=== PATIENT | male | born 1945 | race Hispanic/Latino ===

== ENCOUNTER 2021-10-09 12:19 | Emergency (ER) | payer OTHER ==
[2021-10-09] MEDS ORDERED: LIDOCAINE 1% MPF 5 ML VIAL ONE (14:57)
[2021-10-09] MEDS ORDERED: LIDOCAINE 1% 20 ML MDV ONE (15:11)
--- NOTE | 2021-10-09 15:47 | ER ---
Nurse's Notes [facility] Name: Buzz Richardson Age: 75 yrs Sex: Male : 1945 Arrival Date: 10/09/2021 Time: 12:26 Bed 16 Private MD: Diagnosis: Laceration without foreign body of unspecified part of head Presentation: 10/09 12:39 Chief complaint: Patient states: Pt was waling down the ramp from the trailer and lost vg1 balance and fell and hit head on concrete, incident occurred about two hours ago. Denies LOC. Stated takes 81 mg of Aspirin/ day. Pt appears to have a laceration near Right eyebrow. Took 400 mg of ibuprofen about an hour ago. Coronavirus screen: Vaccine status: Patient reports receiving the 2nd dose of the covid vaccine. Client denies travel out of the [place] in the last 14 days. Ebola Screen: Patient denies exposure to infectious person. Patient denies travel to an Ebola-affected area in the 21 days before illness onset. Initial Sepsis Screen: Does the patient meet any 2 criteria? No. Patient's initial sepsis screen is negative. Does the patient have a suspected source of infection? No. Patient's initial sepsis screen is negative. Risk Assessment: Do you want to hurt yourself or someone else? Patient reports no desire to harm self or others. Onset of symptoms was October 09, 2021. 12:39 Method Of Arrival: Ambulatory vg1 12:39 Acuity: KYLER 3 vg1 Triage Assessment: 12:44 General: Appears comfortable, Behavior is calm, cooperative. Pain: Complains of pain in vg1 forehead Pain currently is 0 out of 10 on a pain scale. 12:44 Neuro: Level of Consciousness is awake, alert, obeys commands, Oriented to person, vg1 place, time, situation. Historical: - Allergies: 12:44 No Known Allergies; vg1 - Home Meds: 12:44 metformin Oral [Active]; Lisinopril Oral [Active]; tamsulosin oral [Active]; Aspirin vg1 Oral [Active]; Glipizide Oral [Active]; citalopram oral [Active]; insulin [Active]; - PMHx: 12:44 Diabetes mellitus; PTSD; Hypertensive disorder; vg1 - Immunization history:: Client reports receiving the 2nd dose of the Covid vaccine. - Social history:: Smoking status: Patient denies any tobacco usage or history of. Screenin:33 Abuse screen: Denies threats or abuse. Denies injuries from another. Nutritional hb screening: No deficits noted. Tuberculosis screening: No symptoms or risk factors identified. Fall Risk None identified. Assessment: 15:33 General: Appears in no apparent distress. Behavior is calm, cooperative. Pain: Denies hb pain. Neuro: Level of Consciousness is awake, alert, obeys commands, Oriented to person, place, time, situation. Cardiovascular: Patient's skin is warm and dry. Respiratory: Respiratory effort is even, unlabored, Respiratory pattern is regular, symmetrical. 15:34 Reassessment: Dr. Peace at bedside for lac repair. hb Vital Signs: 12:39 BP 140 / 54; Pulse 68; Resp 18; Temp 98.1; Pulse Ox 98% on R/A; Weight 138.35 kg; vg1 Height 5 ft. 11 in. (180.34 cm); Pain 0/10; 12:39 Body Mass Index 42.54 (138.35 kg, 180.34 cm) vg1 ED Course: 12:26 Patient arrived in ED. mr 12:44 Triage completed. vg1 12:44 Arm band placed on. [facility] 12:50 [facility] jl9 14:43 Ana Beck, RN is Primary Nurse. hb 15:33 Patient has correct armband on for positive identification. hb 15:33 No provider procedures requiring assistance completed. Patient did not have IV access hb during this emergency room visit. Administered Medications: 15:10 Drug: Lidocaine (1 %) 5 ml {Note: Administered by Dr. Peace.} Volume: 20 ml; Route: hb Infiltration; Medication: 15:33 VIS not applicable for this client. hb Outcome: 15:46 Discharge ordered by MD. santamaria 15:56 Discharged to home ambulatory, with significant other. hb 15:56 Condition: stable 15:56 Discharge instructions given to patient, significant other, Instructed on discharge instructions, follow up and referral plans. medication usage, Demonstrated understanding of instructions, follow-up care, medications. 15:57 Patient left the ED. hb Signatures: Carrasquillo Kary mr Ana Beck RN RN Ileana Post RN RN [facility] Pedro Peace jl9
--- NOTE | 2021-10-09 15:47 | EDPHYS ---
Physician Documentation [facility] Name: Buzz Richardson Age: 75 yrs Sex: Male : 1945 Arrival Date: 10/09/2021 Time: 12:26 Bed 16 Private MD: ED Physician HPI: 10/09 14:36 This 75 yrs old Male presents to ER via Ambulatory with complaints of Fall jl9 Injury, Laceration To Head. 14:36 Details of fall: The patient fell from an upright position, while walking. Onset: The jl9 symptoms/episode began/occurred just prior to arrival. Associated injuries: The patient sustained laceration, 4 cm(s). Patient reports tripping and falling. Patient denies LOC. . Historical: - Allergies: 12:44 No Known Allergies; vg1 - Home Meds: 12:44 metformin Oral [Active]; Lisinopril Oral [Active]; tamsulosin oral [Active]; Aspirin vg1 Oral [Active]; Glipizide Oral [Active]; citalopram oral [Active]; insulin [Active]; - PMHx: 12:44 Diabetes mellitus; PTSD; Hypertensive disorder; vg1 - Immunization history:: Client reports receiving the 2nd dose of the Covid vaccine. - Social history:: Smoking status: Patient denies any tobacco usage or history of. ROS: 14:38 Constitutional: Negative for fever, chills, and weight loss, Eyes: Negative for injury, jl9 pain, redness, and discharge, ENT: Negative for injury, pain, and discharge, Neck: Negative for injury, pain, and swelling, Cardiovascular: Negative for chest pain, palpitations, and edema, Respiratory: Negative for shortness of breath, cough, wheezing, and pleuritic chest pain, Abdomen/GI: Negative for abdominal pain, nausea, vomiting, diarrhea, and constipation, Back: Negative for injury and pain, MS/Extremity: Negative for injury and deformity. 14:38 Neuro: Negative for headache, weakness, numbness, tingling, and seizure, Psych: Negative for depression, anxiety, suicide ideation, homicidal ideation, and hallucinations, Allergy/Immunology: Negative for hives, rash, and allergies, Endocrine: Negative for neck swelling, polydipsia, polyuria, polyphagia, and marked weight changes, Hematologic/Lymphatic: Negative for swollen nodes, abnormal bleeding, and unusual bruising. 14:38 Skin: Positive for laceration(s). Exam: 14:39 Constitutional: This is a well developed, well nourished patient who is awake, alert, jl9 and in no acute distress. Head/Face: Normocephalic, atraumatic. Eyes: Pupils equal round and reactive to light, extra-ocular motions intact. Lids and lashes normal. Conjunctiva and sclera are non-icteric and not injected. Cornea within normal limits. Periorbital areas with no swelling, redness, or edema. ENT: Mucous membranes moist. Neck: Trachea midline, no thyromegaly or masses palpated, and no cervical lymphadenopathy. Supple, full range of motion without nuchal rigidity, or vertebral point tenderness. No Meningismus. Chest/axilla: Normal chest wall appearance and motion. Nontender with no deformity. No lesions are appreciated. Cardiovascular: Regular rate and rhythm with a normal S1 and S2. No gallops, murmurs, or rubs. Normal PMI, no JVD. No pulse deficits. Respiratory: Lungs have equal breath sounds bilaterally, clear to auscultation and percussion. No rales, rhonchi or wheezes noted. No increased work of breathing, no retractions or nasal flaring. Abdomen/GI: Soft, non-tender, with normal bowel sounds. No distension or tympany. No guarding or rebound. No evidence of tenderness throughout. Back: No spinal tenderness. No costovertebral tenderness. Full range of motion. 14:39 MS/ Extremity: Pulses equal, no cyanosis. Neurovascular intact. Full, normal range of motion. Neuro: Awake and alert, GCS 15, oriented to person, place, time, and situation. Cranial nerves II-XII grossly intact. Motor strength 5/5 in all extremities. Sensory grossly intact. Cerebellar exam normal. Normal gait. Psych: Awake, alert, with orientation to person, place and time. Behavior, mood, and affect are within normal limits. 14:39 Skin: 4cm laceration. . Vital Signs: 12:39 BP 140 / 54; Pulse 68; Resp 18; Temp 98.1; Pulse Ox 98% on R/A; Weight 138.35 kg; vg1 Height 5 ft. 11 in. (180.34 cm); Pain 0/10; 12:39 Body Mass Index 42.54 (138.35 kg, 180.34 cm) vg1 Laceration: 15:41 Wound Repair of 4cm ( 1.6in ) subcutaneous laceration to face. Distal jl9 neuro/vascular/tendon intact. 15:41 Wound Repair of subcutaneous laceration. Distal neuro/vascular/tendon intact. jl9 Anesthesia: Wound infiltrated with 4 mls of 1% lidocaine. Wound prep: Simple cleansing, Wound irrigation with saline by wy. Skin closed with 13 5-0 Nylon using simple sutures and sterile technique. Dressed with 4x4's. MDM: 12:50 Patient medically screened. jl9 14:40 Data reviewed: vital signs, nurses notes. 9 10/09 14:41 Order name: Dressing - Wound; Complete Time: 15:02 jl9 10/09 14:41 Order name: Gloves, Sterile; Complete Time: 15:02 jl9 10/09 14:41 Order name: Setup Suture Tray; Complete Time: 15:02 jl9 Administered Medications: 15:10 Drug: Lidocaine (1 %) 5 ml {Note: Administered by Dr. Peace.} Volume: 20 ml; Route: hb Infiltration; Disposition Summary: 10/09/21 15:46 Discharge Ordered Location: Home jl9 Condition: Stable jl9 Diagnosis - Laceration without foreign body of unspecified part of head jl9 Followup: jl9 - With: Private Physician - When: 5 - 6 days - Reason: Wound Recheck, Recheck today's complaints, Continuance of care, Re-evaluation by your physician Discharge Instructions: - Discharge Summary Sheet jl9 - Laceration Care, Adult, [id number] jl9 Forms: - Medication Reconciliation Form jl9 - Thank You Letter jl9 - Antibiotic Education jl9 - Prescription Opioid Use jl9 Signatures: Ana Beck, RN RN Ileana Post, RN RN Pedro Gorman jl9
[2021-10-09 16:19] VITALS: BP 140/54; TEMP 98.1; O2SAT 98
== END 2021-10-09 15:57 | disposition home or self-care (01) ==
LOC: ER 12:19
PROC: 0JQ10ZZ Repair Face Subcutaneous Tissue and Fascia, Open Approach (ICD-10-PCS; principal; 2021-10-09)
DX: S01.81XA Laceration without foreign body of other part of head, initial encounter (principal); E11.9 Type 2 diabetes mellitus without complications; I10 Essential (primary) hypertension
CPT/HCPCS: 99283